=== PATIENT | female | born 1960 | race African-American/Black ===

== ENCOUNTER 2020-05-12 05:53 | Inpatient (IN) | payer MEDICAID ==
[~2020-05-12] VITALS: Ht 167.6 cm; Wt 153.3 kg
[2020-05-12 07:55] LABS: MEAN CORPUSCULAR HEMOGLOBIN 19.9 pg (28.0-32.0); MEAN CORPUSCULAR VOLUME 66.2 fL (81.0-99.0); MEAN PLATELET VOLUME 8.3 fl (7.4-10.4); PLATELET 266 x1000/uL (130-400); RED BLOOD CELL COUNT 2.85 mill/uL (4.2-5.4); RED CELL DISTRIBUTION WIDTH 28.5 % (11.6-14.6)
[2020-05-12 08:02] LABS: HEMATOCRIT. 18.9 % (36.0-48.0); HEMOGLOBIN. 5.7 g/dL (12.0-16.0)
[2020-05-12 11:15] LABS: PLATELET ESTIMATE NORMAL
[2020-05-12 12:30] VITALS: BP 124/60
[2020-05-12] MEDS ORDERED: ONDANSETRON HCL 4MG/2ML INJ IV PRN (12:30)
[2020-05-12] MEDS: DOCUSATE SODIUM SUGAR FREE 100MG/10ML UDC PO SCH (12:30)
[2020-05-12] MEDS: FERROUS SULFATE 325MG TABLET PO SCH ×2 (13:00→17:50)
[2020-05-12 14:48] LABS: HEMATOCRIT 21.3 % (36.0-48.0)
[2020-05-12 15:02] LABS: HEMOGLOBIN 6.6 g/dL (12.0-16.0)
[2020-05-12 15:05] LABS: CHLORIDE 107 mEq/L (98-107)
[2020-05-12 18:53] VITALS: BP 135/62
[2020-05-12 19:04] VITALS: BP 133/88
[2020-05-12 20:00] VITALS: BP 119/60
[2020-05-12 20:04] VITALS: BP 119/60
[2020-05-12] MEDS: ACETAMINOPHEN 325MG TABLET PO PRN (21:06)
[2020-05-12 23:57] LABS: HEMATOCRIT 21.6 % (36.0-48.0)
[2020-05-13] VITALS (10 sets, daily range): BP systolic 120–140; BP diastolic 45–66
[2020-05-13 00:16] LABS: HEMOGLOBIN 6.5 g/dL (12.0-16.0)
[2020-05-13] MEDS: ACETAMINOPHEN 325MG TABLET PO PRN ×2 (03:16→11:50)
[2020-05-13 07:15] LABS: HEMATOCRIT. 25.2 % (36.0-48.0); HEMOGLOBIN. 7.9 g/dL (12.0-16.0); MEAN CORPUSCULAR HEMOGLOBIN 22.3 pg (28.0-32.0); MEAN CORPUSCULAR VOLUME 70.9 fL (81.0-99.0); MEAN PLATELET VOLUME 9.1 fl (7.4-10.4); PLATELET 234 x1000/uL (130-400); RED BLOOD CELL COUNT 3.56 mill/uL (4.2-5.4); RED CELL DISTRIBUTION WIDTH 28.5 % (11.6-14.6)
[2020-05-13 07:28] LABS: CHLORIDE 108 mEq/L (98-107)
[2020-05-13 07:32] LABS: UCG SCREEN NEGATIVE
[2020-05-13 07:41] LABS: CLARITY URINE CLEAR (CLEAR); COLOR URINE YELLOW (YELLOW); KETONES URINE NEGATIVE (NEGATIVE); LEUKOCYTE ESTERASE URINE NEGATIVE (NEGATIVE); NITRITE URINE NEGATIVE (NEGATIVE); OCCULT BLOOD URINE 1+ (NEGATIVE); PROTEIN URINE NEGATIVE (NEGATIVE); SPECIFIC GRAVITY URINE 1.008 (1.005-1.030); UROBILINOGEN URINE 0.2 E.U./dL (0.2-1.0)
[2020-05-13] MEDS: FERROUS SULFATE 325MG TABLET PO SCH ×3 (07:48→18:18)
[2020-05-13 07:54] LABS: *AMPHETAMINES SCREEN URINE NEGATIVE (NEGATIVE); *BARBITURATES SCREEN URINE NEGATIVE (NEGATIVE)
[2020-05-13 07:55] LABS: *BENZODIAZEPINES SCREEN URINE NEGATIVE (NEGATIVE); *COCAINE SCREEN URINE NEGATIVE (NEGATIVE); OPIATES URINE SCREEN NEGATIVE (NEGATIVE)
[2020-05-13 07:56] LABS: CANNABINOID URINE SCREEN NEGATIVE (NEGATIVE); PHENCYCLIDINE URINE SCREEN NEGATIVE (NEGATIVE)
[2020-05-13 08:03] LABS: METHADONE URINE SCREEN NEGATIVE (NEGATIVE)
[2020-05-13] MEDS: DOCUSATE SODIUM SUGAR FREE 100MG/10ML UDC PO SCH (09:00)
[2020-05-13] MEDS ORDERED: DOCU50LI14 PO (12:19)
[2020-05-13] MEDS ORDERED: FERR325T23 PO (12:19)
[2020-05-13 16:52] LABS: PLATELET ESTIMATE NORMAL
== END 2020-05-13 21:08 | disposition home or self-care (01) | DRG 532 ==
LOC: ER 05:53 → 6EST 09:23 → ENRESERV 10:39
PROVIDERS: ADMIT Internal Medicine Nephrology; ATTEND Internal Medicine Nephrology
PROC: 30233N1 Transfusion of Nonautologous Red Blood Cells into Peripheral Vein, Percutaneous Approach (ICD-10-PCS; principal; 2020-05-12)
DX: D25.9 Leiomyoma of uterus, unspecified (principal); E66.01 Morbid (severe) obesity due to excess calories; D64.9 Anemia, unspecified; Z68.43 Body mass index [BMI] 50.0-59.9, adult; Z88.8 Allergy status to other drugs, medicaments and biological substances; Z79.899 Other long term (current) drug therapy
CPT/HCPCS: 36415; 76830; 76856; 80048; 80053; 80305; 81003; 81025; 85014; 85018; 85025; 86850; 86900; 86920; 93005; 99291; J7040; P9016

== ENCOUNTER 2022-11-30 23:22 | Emergency (ER) | payer MEDICAID ==
[~2022-11-30] VITALS: Ht 165.1 cm; Wt 138.0 kg
[~2022-11-30 23:22] MED LIST: DOCU50LI14 PO; FERR325T23 PO
[2022-11-30] MEDS ORDERED: PREDNISONE 20MG TABLET PO STA (23:40)
[2022-11-30] MEDS ORDERED: IPRATROPIUM/ALBUTEROL 0.5-3(2.5)MG/3ML NEB HHN ONE (23:45)
[2022-12-01 00:46] VITALS: PULSE 79; RESP 18; O2SAT 98
[2022-12-01] MEDS ORDERED: ALBU6.7H15 INH (01:15)
[2022-12-01] MEDS ORDERED: P20 MT (01:15)
[2022-12-01] MEDS ORDERED: AZIT1PAC9 MT (01:15)
[2022-12-01 01:35] VITALS: BP 152/72; PULSE 76; RESP 12; TEMP 98.4
== END 2022-12-01 02:00 | disposition home or self-care (01) ==
LOC: ER 23:51
DX: J18.9 Pneumonia, unspecified organism (principal); J45.901 Unspecified asthma with (acute) exacerbation
CPT/HCPCS: 71045; 94640; 99291; Z7610 ×4; J7512